=== PATIENT | male | born 1940 | race Caucasian/White ===

== ENCOUNTER 2020-12-31 22:30 | Emergency (ER) | payer OTHER ==
[2020-12-31 23:11] VITALS: BMI 29.2
[2021-01-01 05:04] VITALS: TEMP 98.1
[2021-01-01 05:52] VITALS: BP 133/86; PULSE 89
== END 2021-01-01 07:25 | disposition home or self-care (01) ==
LOC: JER 22:30
DX: M54.2 Cervicalgia (principal)
CPT/HCPCS: 70450-TC; 72125-TC; 73030-TC-LT-FY; 99285-25